=== PATIENT | female | born 1975 | race Caucasian/White ===

== ENCOUNTER 2017-07-29 17:52 | Emergency (ER) | payer OTHER ==
[~2017-07-29] VITALS: Ht 162.6 cm; Wt 90.4 kg
[~2017-07-29 17:52] MED LIST: ATEN-173 PO; BACL20TA PO; CLON0.5T3 PO; FRS/40 PO; MECL1TAB42 PO; MIRT15TA3 PO; RIBO100C PO; RIZA10TA18 PO; SERT1TAB71 PO
[2017-07-29 17:55] VITALS: BP 156/97; PULSE 65; TEMP 36.8; O2SAT 97; Ht 162.6 cm; Wt 90.4 kg
--- NOTE | 2017-07-29 18:31 | EMERGENCY ROOM VISIT NOTE ---
ED Visit Note First contact with patient: 18:00 CHIEF COMPLAINT: Itchy skin rash under left breast 2 weeks HISTORY OF PRESENT ILLNESS: Patient is a 42-year-old white female who presents the emergency department for evaluation of an itchy skin rash under her left breast that has been present for about 2 weeks. Patient reports that she was seen at a walk-in clinic in the [place] 1-2 months ago and diagnosed with a yeast infection. She was placed on a nystatin powder, which cleared the rash, and she was asymptomatic until about 2 weeks ago when her symptoms returned under her left breast. She resumed using the nystatin powder twice daily as prescribed, but her symptoms are not getting any better. She is now noticing lesions lower down on her abdomen and noticed one under her right breast today. She wears cotton sports bras and denies changing any of her topical products including soaps, lotions or detergents. She states that the area does often get sweaty because her house is warm and she is outside with her dogs often. She has also tried using calamine lotion without relief. She states that it is not painful. The nystatin is helping with the itch but is not clearing up her symptoms. She was seen at the walk-in clinic again 3 days ago for an upper respiratory infection. When she mentioned that the rash had resumed she was told to follow-up with her primary care doctor. She states that she could not be seen by her doctor for an additional 2 days and therefore came to the emergency department. REVIEW OF SYSTEMS: Review of systems as per HPI. All other systems reviewed were negative. 10 systems reviewed. PMH: Electronic medical records are reviewed and summarized as above/below. See Problem List. SOCIAL HISTORY: Patient lives at home with her significant other. Unemployed. Positive tobacco use.. PHYSICAL EXAM: Vital Signs: Reviewed Nurse's notes. INTEGUMENTARY: Examination of the intertriginous area underneath the left breast demonstrates a raised, maculopapular erythematous rash that blanches, with few satellite pustules and peripheral scale. She has 3 small pustular lesions lower on her abdomen, and one posteriorly lesion noted under the right breast. The area is not particularly macerated. There are no overt cellulitic changes. EMERGENCY DEPARTMENT COURSE: . The patient was seen and evaluated as above. She has been using a nystatin powder on a suspected intertriginous candidiasis under her left breast for about 2 weeks with incomplete relief of her symptoms. The powder clinically appears to be doing well at controlling the itch and and has been helping to keep the area dry as the skin is not classically macerated or draining. The patient will be placed on a clotrimazole cream. She can alternate with the nystatin for the anti-itch effect or she can use a topical talcum powder as needed. Other skin care measures were discussed including cleaning thoroughly with a mild soap and water, drying thoroughly, and wearing breathable clothing. Area does not appear consistent with a folliculitis, cellulitis or a contact dermatitis. The patient was encouraged to follow-up with her primary care provider next week for further care and evaluation. If her symptoms have not improved, she may need to be referred to dermatology. Medication reconciliation: I attest that I have personally reviewed the patient' s current medication list. Blood pressure screening: Patient was found to have a slightly elevated blood pressure due to circumstances. I do not believe that the patient requires hypertension monitoring. Problem List Medical Problems: (1) Anxiety Status: Chronic (2) Headache Status: Resolved (3) Hypertension Status: Chronic (4) Migraine headache Status: Chronic (5) Occipital neuralgia Status: Resolved (6) Vertigo Status: Chronic Surgical Problems: (1) History of hysterectomy Status: Resolved Current/Historical Medications Scheduled Atenolol (Tenormin), 25 MG PO DAILY Baclofen (Lioresal), 20 MG PO TID Clonazepam (Klonopin), 0.5 MG PO TID Clotrimazole (Topical) (Tgt Clotrimazole), 1 APPLN TOP BID Furosemide (Lasix), 40 MG PO DAILY Mirtazapine (Remeron), 15 MG PO HS Riboflavin (Riboflavin), 100 MG PO DAILY Sertraline Hcl (Zoloft), 50 MG PO HS Scheduled PRN Meclizine Hcl (Meclizine Hcl), 25 MG PO TID PRN for Dizziness or Vertigo Rizatriptan Benzoate (Maxalt), 10 MG PO UD PRN for Migraine Allergies Coded Allergies: Aspirin (Unverified Allergy, Severe, HEART FLUTTER, 10/18/15) Buspirone (Unverified Allergy, Severe, WEAKNESS,HEADACHE, 10/18/15) Caffeine (Unverified Allergy, Severe, HEART FLUTTER, 10/18/15) Codeine (Unverified Allergy, Severe, CHILLS,RASH, 10/18/15) Doxycycline (Unverified Allergy, Severe, STOMACH UPSET, 10/18/15) Morphine and Related (Unverified Allergy, Severe, ITCH,RASH, 10/18/15) Phenacetin (Unverified Allergy, Severe, HEART FLUTTER, 10/18/15) Sulfamethoxazole w/Trimethoprim (Unverified Allergy, Severe, RASH,ITCH, 10/18/15) Sumatriptan (Unverified Allergy, Severe, THROAT TIGHTEN,CHEST REDNESS, 10/17) Acetaminophen (Unverified Allergy, Unknown, UNKNOWN, 10/18/15) Amoxicillin (Unverified Allergy, Unknown, UNKNOWN, 10/18/15) Hydrocodone (Unverified Allergy, Unknown, UNKNOWN, 10/18/15) Vital Signs Date Time Temp Pulse Resp B/P (MAP) Pulse Ox O2 Delivery O2 Flow Rate FiO2 07/29/17 17:55 36.8 65 17 156/97 97 Room Air Departure Information Impression Primary Impression: Intertriginous candidiasis Prescriptions Clotrimazole (Topical) (TGT CLOTRIMAZOLE) 1 % Cre 1 APPLN TOP BID for 21 Days, #45 GM Prov: Jenna Downing PA 07/29/17 Referrals Conner Dietrich D.OBerenice (PCP) Patient Instructions My [facility] Additional Instructions Clotrimazole 1% cream: Apply a thin layer to the affected area twice daily. May continue to use the nystatin powder on the area for the drying and anti- itch effects, or can switch to a talcum powder. Continue skin care measures as discussed. Follow up with your primary care provider next week if your symptoms are not improving.
[2017-07-29] MEDS ORDERED: CLOT1CRE3 TD (18:35)
[2017-07-29] MEDS ORDERED: CLOT1CRE TOP (18:37)
== END 2017-07-29 18:45 | disposition home or self-care (01) ==
LOC: C.EDB 17:54 → C.EDD 18:45
DX: B37.2 Candidiasis of skin and nail (principal); F17.200 Nicotine dependence, unspecified, uncomplicated; F41.9 Anxiety disorder, unspecified; I10 Essential (primary) hypertension; Z90.710 Acquired absence of both cervix and uterus; Z88.6 Allergy status to analgesic agent; Z88.8 Allergy status to other drugs, medicaments and biological substances; Z88.1 Allergy status to other antibiotic agents; Z88.0 Allergy status to penicillin